=== PATIENT | female | born 1955 | race African-American/Black ===

== ENCOUNTER 2018-05-19 12:56 | Observation (INO) ==
[2018-05-19 15:14] LABS: Basophils % 0.4 % (0.0-0.8); Eosinophils # 0.1 10*3/uL (0.0-0.87); Eosinophils % 0.6 % (0.00-10.9); Hematocrit 21.5 VOL% (35.7-47.0); Hemoglobin 6.5 GM/DL (12.0-16.0); Lymphocytes # 1.6 10*3/uL (1.4-4.0); Lymphocytes % 16.6 % (21.3-54.2); Mean Corpuscular HGB Conc 30.2 GM/DL (32-36); Mean Corpuscular Hemoglobin 28 PG (27-34); Mean Corpuscular Volume 91.9 FL (87-102); Monocytes # 0.9 10*3/uL (0.11-0.8); Monocytes % 9.6 % (1.7-12.7); NRBC # 0.05 10*3/uL; Neutrophils # 7.1 10*3/uL (1.4-7.4); Neutrophils % 71.8 % (38.7-73.9); Platelet Count 453 T/CUMM (130-400); Red Blood Count 2.34 MC/CUMM (3.8-5.5); Red Cell Distribution Width 17.1 % (9.3-17.3); White Blood Count 9.8 T/CUMM (4-12)
[2018-05-19 15:44] LABS: Alanine Aminotransferase 38 U/L (13-56); Albumin 3.4 G/DL (3.4-5.0); Alkaline Phosphatase 118 U/L (45-117); Aspartate Amino Transferase 28 U/L (0-37); Bilirubin,Total < 0.39 MG/DL (0.2-1.0); Blood Urea Nitrogen 47 MG/DL (7-18); Calcium 8.9 MG/DL (8.5-10.1); Glucose 103 MG/DL (74-106); Osmolality,Calculated 284.8 MOS/KG (273-304); Potassium 4.4 MMOL/L (3.5-5.1); Sodium 137 MMOL/L (136-145); Total Protein 7.7 G/DL (6.4-8.3)
[2018-05-19] MEDS ORDERED: SODIUM CHLORIDE 0.9% 1,000 ML IV PRN ×2 (15:56→16:30)
[2018-05-19 16:18] LABS: INR 4.4
[2018-05-19 16:29] LABS: PT Patient Result 43.8 SECS
[2018-05-19] MEDS ORDERED: MORPHINE 4 MG/1 ML VIAL IV PRN (16:31)
[2018-05-19] MEDS ORDERED: ONDANSETRON 4 MG/2 ML VIAL IV PRN (16:31)
[2018-05-19] MEDS ORDERED: FUROSEMIDE 20 MG/2 ML VIAL IV ONE (16:33)
[2018-05-19] MEDS: SODIUM CHLORIDE 0.9% 1,000 ML IV SCH (17:30)
[2018-05-19] MEDS ORDERED: DOCUSATE SODIUM 100 MG CAPSULE PO PRN (17:37)
[2018-05-19 18:05] LABS: Hematocrit 24.1 VOL% (35.7-47.0); Hemoglobin 7.3 GM/DL (12.0-16.0)
[2018-05-19] MEDS ORDERED: PANTOPRAZOLE INJ 80 MG in SODIUM CHLORIDE 0.9% 100 ML IV ONE (19:00)
[2018-05-19] MEDS ORDERED: PANTOPRAZOLE INJ 200 MG in SODIUM CHLORIDE 0.9% 250 ML IV SCH (20:00)
[2018-05-19] MEDS: AMIODARONE 200 MG TABLET PO SCH (20:17)
[2018-05-19] MEDS: SACUBITRIL/VALSARTAN 49-51 MG TABLET PO SCH (20:17)
[2018-05-19] MEDS: METOPROLOL SUCCINATE XL 25 MG TABLET PO SCH (20:18)
[2018-05-19] MEDS ORDERED: PANTOPRAZOLE 40 MG VIAL IV SCH (21:00)
[2018-05-20 08:35] LABS: Basophils % 0.4 % (0.0-0.8); Eosinophils # 0.1 10*3/uL (0.0-0.87); Eosinophils % 1.2 % (0.00-10.9); Hematocrit 25.7 VOL% (35.7-47.0); Hemoglobin 8.2 GM/DL (12.0-16.0); Immature Granulocytes % 0.9 %; Immature Granulocytes Absolute 0.06 #; Lymphocytes # 1.2 10*3/uL (1.4-4.0); Mean Corpuscular HGB Conc 31.9 GM/DL (32-36); Mean Corpuscular Hemoglobin 28 PG (27-34); Mean Corpuscular Volume 88.6 FL (87-102); Mean Platelet Volume 10.9 FL (9.6-12.0); Monocytes # 0.8 10*3/uL (0.11-0.8); Monocytes % 11.6 % (1.7-12.7); NRBC # 0.02 10*3/uL; Neutrophils # 4.6 10*3/uL (1.4-7.4); Neutrophils % 67.9 % (38.7-73.9); Red Cell Distribution Width 16.3 % (9.3-17.3)
[2018-05-20 08:36] LABS: White Blood Count 6.7 T/CUMM (4-12)
[2018-05-20 08:37] LABS: Platelet Count 328 T/CUMM (130-400)
[2018-05-20 09:06] LABS: Alanine Aminotransferase 35 U/L (13-56); Alkaline Phosphatase 105 U/L (45-117); Aspartate Amino Transferase 27 U/L (0-37); Bilirubin,Total < 0.39 MG/DL (0.2-1.0); Blood Urea Nitrogen 39 MG/DL (7-18); Calcium 8.6 MG/DL (8.5-10.1); Glucose 98 MG/DL (74-106); Osmolality,Calculated 289.3 MOS/KG (273-304); Sodium 141 MMOL/L (136-145)
[2018-05-20] MEDS: METOPROLOL SUCCINATE XL 25 MG TABLET PO SCH ×2 (10:24→12:10)
[2018-05-20] MEDS: POTASSIUM CHLORIDE 10 MEQ TABLET PO SCH ×2 (10:24→12:10)
[2018-05-20] MEDS: AMIODARONE 200 MG TABLET PO SCH ×2 (10:24→12:11)
[2018-05-20] MEDS: SACUBITRIL/VALSARTAN 49-51 MG TABLET PO SCH ×2 (10:24→12:11)
[2018-05-20] MEDS: FUROSEMIDE 40 MG TABLET PO SCH ×2 (10:24→12:10)
[2018-05-20 13:17] LABS: Hematocrit 27.2 VOL% (35.7-47.0); Hemoglobin 8.7 GM/DL (12.0-16.0)
[2018-05-20] MEDS: SODIUM CHLORIDE 0.9% 1,000 ML IV SCH (14:46)
[2018-05-20 16:10] VITALS: BP 113/65
[2018-05-23] MEDS ORDERED: PANTOPRAZOLE 40 MG VIAL IV SCH (09:00)
== END 2018-05-20 15:10 | disposition left against medical advice (07) | DRG 812 ==
LOC: N.ED 12:56 → N.EDINP 16:29 → INTOOBSV 16:29 → N.2E 18:16
PROVIDERS: ADMIT Internal Medicine; ATTEND Internal Medicine

== ENCOUNTER 2020-11-19 05:46 | Inpatient (IN) ==
[2020-11-13 12:16] LABS: Basophils # 0.1 10*3/uL (0.0-0.2); Basophils % 0.6 % (0.0-0.8); Eosinophils # 0.2 10*3/uL (0.0-0.87); Eosinophils % 1.9 % (0.00-10.9); Hematocrit 34.5 VOL% (35.7-47.0); Hemoglobin 11.1 GM/DL (12.0-16.0); Immature Granulocytes Absolute 0.08 #; Lymphocytes # 1.4 10*3/uL (1.4-4.0); Lymphocytes % 16.7 % (21.3-54.2); Mean Corpuscular HGB Conc 32.2 GM/DL (32-36); Mean Corpuscular Volume 92.5 FL (87-102); Monocytes % 9.4 % (1.7-12.7); Neutrophils % 70.4 % (38.7-73.9); Platelet Count 521 T/CUMM (130-400); Red Blood Count 3.73 MC/CUMM (3.8-5.5); Red Cell Distribution Width 16.3 % (9.3-17.3); White Blood Count 8.2 T/CUMM (4-12)
[2020-11-13 12:30] LABS: Bilirubin,Urine Negative (Negative); Blood, Urine Negative (Negative); Glucose,Urine (UA) Negative (Negative); Ketones,Urine Negative (Negative); Nitrite,Urine Negative (Negative); Protein,Urine 2+ MG/DL; RBC,Urine Rare /HPF (0-4); Squamous Epithelial Cell,Urine Few /HPF (0-10); Urine Appearance Clear (Clear); Urine Color Yellow (Yellow)
[2020-11-13 12:31] LABS: INR 1.6; PT Patient Result 16.3 SECS (9.8-11.9); Partial Thromboplastin Time 41.3 SECS (23.9-33.8)
[2020-11-13 12:54] LABS: Albumin 3.4 G/DL (3.4-5.0); Bilirubin,Total 0.4 MG/DL (0.2-1.0); Osmolality,Calculated 279.4 MOS/KG (273-304); Potassium 5.2 MMOL/L (3.5-5.1); Total Protein 7.5 G/DL (6.4-8.3)
[2020-11-13 17:03] LABS: Sedimentation Rate-Westergren 90 MM/HR (0-30)
[2020-11-19] MEDS ORDERED: ceFAZolin 1,000 MG in SYRINGE 1 EACH IV ONE (06:00)
[2020-11-19] MEDS ORDERED: VANCOMYCIN INJ 1,000 MG in SODIUM CHLORIDE 0.9% 250 ML IV ONE (06:00)
[2020-11-19] MEDS ORDERED: BACITRACIN OINT 0.9 GM PACK TOP ONE (06:42)
[2020-11-19 06:46] LABS: Partial Thromboplastin Time 32.2 SECS (23.9-33.8)
[2020-11-19] MEDS ORDERED: MIDAZOLAM 2 MG/2 ML VIAL ONE (06:59)
[2020-11-19] MEDS ORDERED: propofoL 200 MG/20 ML VIAL IV ONE (06:59)
[2020-11-19] MEDS ORDERED: fentaNYL 100 MCG/2 ML VIAL ONE ×3 (06:59→08:56)
[2020-11-19] MEDS ORDERED: LIDOCAINE 2% 5 ML VIAL ONE (06:59)
[2020-11-19] MEDS ORDERED: ROPIVACAINE 0.5% 30 ML VIAL ONE (07:02)
[2020-11-19] MEDS ORDERED: DEXAMETHASONE 4 MG/1 ML VIAL ONE (07:02)
[2020-11-19] MEDS ORDERED: LACTATED RINGERS 1,000 ML IV SCH (07:30)
[2020-11-19] MEDS ORDERED: TOBRAMYCIN 1.2 GM VIAL TOP ONE ×2 (07:31→08:00)
[2020-11-19] MEDS ORDERED: VANCOMYCIN 1,000 MG VIAL ONE (07:32)
[2020-11-19] MEDS ORDERED: ONDANSETRON 4 MG/2 ML VIAL ONE (08:48)
[2020-11-19] MEDS ORDERED: PHENYLEPHRINE 1 MG/10 ML SYRINGE IV ONE (08:48)
[2020-11-19] MEDS ORDERED: HYDROCORTISONE 100 MG VIAL ONE (08:48)
[2020-11-19] MEDS ORDERED: ACETAMINOPHEN 1,000 MG/100 ML VIAL IV ONE (08:49)
[2020-11-19] MEDS ORDERED: ROCURONIUM 50 MG/5 ML VIAL IV ONE (08:49)
[2020-11-19] MEDS ORDERED: TRANEXAMIC ACID 1,000 MG/10 ML VIAL ONE (10:14)
[2020-11-19] MEDS ORDERED: SEVOFLURANE 1 UNIT/15 MINUTE INH ONE (10:18)
[2020-11-19] MEDS ORDERED: LACTATED RINGERS 1,000 ML IV ONE (10:27)
[2020-11-19] MEDS ORDERED: KETOROLAC 30 MG/1 ML VIAL ONE (10:30)
[2020-11-19] MEDS ORDERED: GLUCAGON 1 MG VIAL IM PRN (10:31)
[2020-11-19] MEDS ORDERED: DEXTROSE 50% 25 GM/50 ML VIAL IV PRN (10:31)
[2020-11-19] MEDS ORDERED: MAGNESIUM HYDROXIDE SUSP 30 ML UDCUP PO PRN (10:32)
[2020-11-19] MEDS ORDERED: diphenhydrAMINE CAP 25 MG CAPSULE PO PRN (10:32)
[2020-11-19] MEDS ORDERED: NALOXONE 0.4 MG/ML VIAL IV PRN (10:35)
[2020-11-19] MEDS ORDERED: SUGAMMADEX 200 MG/2 ML VIAL IV ONE (10:43)
[2020-11-19] MEDS ORDERED: HYDROmorphone 2 MG/1 ML VIAL ONE (10:55)
[2020-11-19] MEDS: HYDROmorphone 2 MG/1 ML VIAL IV PRN ×4 (10:55→11:15)
[2020-11-19] MEDS ORDERED: ONDANSETRON 4 MG/2 ML VIAL IV PRN (10:57)
[2020-11-19] MEDS ORDERED: HYDROmorphone PCA 30 MG/30 ML SYRINGE IV SCH (11:00)
[2020-11-19] MEDS: ONDANSETRON 4 MG/2 ML VIAL IV PRN (15:52)
[2020-11-19] MEDS: INSULIN LISPRO 100 UNIT/ML SUBCUT SCH ×4 (16:05→21:16)
[2020-11-19] MEDS: LACTATED RINGERS 1,000 ML IV SCH ×2 (16:46→20:19)
[2020-11-19] MEDS: ceFAZolin 1,000 MG in SYRINGE 1 EACH IV SCH (21:07)
[2020-11-19] MEDS: ATORVASTATIN 10 MG TABLET PO SCH (21:14)
[2020-11-19] MEDS: SACUBITRIL/VALSARTAN 49-51 MG TABLET PO SCH (21:14)
[2020-11-19] MEDS: METOPROLOL SUCCINATE XL 25 MG TABLET PO SCH (21:15)
[2020-11-19] MEDS: AMIODARONE 200 MG TABLET PO SCH (21:15)
[2020-11-19] MEDS: DOCUSATE SODIUM 100 MG CAPSULE PO SCH (21:15)
[2020-11-20] MEDS: ceFAZolin 1,000 MG in SYRINGE 1 EACH IV SCH (03:52)
[2020-11-20] MEDS ORDERED: ceFAZolin 1,000 MG in SYRINGE 1 EACH IV SCH (04:00)
[2020-11-20] MEDS: LACTATED RINGERS 1,000 ML IV SCH (04:25)
[2020-11-20 05:12] LABS: Basophils % 0.1 % (0.0-0.8); Eosinophils % 0.1 % (0.00-10.9); Hematocrit 27.4 VOL% (35.7-47.0); Hemoglobin 8.6 GM/DL (12.0-16.0); Immature Granulocytes % 0.6 %; Immature Granulocytes Absolute 0.09 #; Lymphocytes # 1.4 10*3/uL (1.4-4.0); Lymphocytes % 9.3 % (21.3-54.2); Mean Corpuscular HGB Conc 31.4 GM/DL (32-36); Mean Corpuscular Volume 94.5 FL (87-102); Mean Platelet Volume 11.4 FL (9.6-12.0); Monocytes % 10.7 % (1.7-12.7); Neutrophils % 79.2 % (38.7-73.9); Platelet Count 288 T/CUMM (130-400); Red Cell Distribution Width 16.8 % (9.3-17.3); White Blood Count 14.7 T/CUMM (4-12)
[2020-11-20 05:38] LABS: Calcium 8.7 MG/DL (8.5-10.1); Osmolality,Calculated 281.4 MOS/KG (273-304); Potassium 4.5 MMOL/L (3.5-5.1)
[2020-11-20 05:41] LABS: Risk Ratio 2.23; VLDL CHOLESTEROL 11.4 MG/DL
[2020-11-20] MEDS: VANCOMYCIN INJ 1,250 MG in SODIUM CHLORIDE 0.9% 250 ML IV SCH (06:29)
[2020-11-20] MEDS ORDERED: MORPHINE 4 MG/1 ML VIAL IV PRN (07:12)
[2020-11-20] MEDS: INSULIN LISPRO 100 UNIT/ML SUBCUT SCH ×4 (08:02→21:26)
[2020-11-20] MEDS ORDERED: AMIODARONE 200 MG TABLET PO SCH (09:01)
[2020-11-20] MEDS: METOPROLOL SUCCINATE XL 25 MG TABLET PO SCH ×2 (09:45→21:26)
[2020-11-20] MEDS: PANTOPRAZOLE 40 MG TABLET PO SCH (09:45)
[2020-11-20] MEDS: FAMOTIDINE 20 MG TABLET PO SCH (09:46)
[2020-11-20] MEDS: SACUBITRIL/VALSARTAN 49-51 MG TABLET PO SCH ×2 (09:46→21:25)
[2020-11-20] MEDS: ASPIRIN EC 81 MG TABLET PO SCH (09:46)
[2020-11-20] MEDS: SPIRONOLACTONE 25 MG TABLET PO SCH (09:46)
[2020-11-20] MEDS: AMIODARONE 200 MG TABLET PO SCH (09:46)
[2020-11-20] MEDS: POTASSIUM CHLORIDE 10 MEQ TABLET PO SCH (09:46)
[2020-11-20] MEDS: DOCUSATE SODIUM 100 MG CAPSULE PO SCH ×2 (09:46→21:25)
[2020-11-20] MEDS: FUROSEMIDE 40 MG TABLET PO SCH (09:47)
[2020-11-20] MEDS: FLUoxetine 20 MG CAPSULE PO SCH (09:47)
[2020-11-20 09:57] LABS: PT Patient Result 10.4 SECS (9.8-11.9)
[2020-11-20] MEDS: ONDANSETRON 4 MG/2 ML VIAL IV PRN (11:48)
[2020-11-20] MEDS ORDERED: WARFARIN 3 MG TABLET PO SCH (21:00)
[2020-11-20] MEDS: ATORVASTATIN 10 MG TABLET PO SCH (21:26)
[2020-11-21 05:31] LABS: Basophils % 0.2 % (0.0-0.8); Eosinophils # 0.1 10*3/uL (0.0-0.87); Eosinophils % 0.7 % (0.00-10.9); Hematocrit 25.3 VOL% (35.7-47.0); Hemoglobin 7.9 GM/DL (12.0-16.0); Immature Granulocytes % 0.6 %; Immature Granulocytes Absolute 0.07 #; Lymphocytes # 1.3 10*3/uL (1.4-4.0); Lymphocytes % 11.2 % (21.3-54.2); Mean Corpuscular HGB Conc 31.2 GM/DL (32-36); Mean Corpuscular Volume 95.5 FL (87-102); Mean Platelet Volume 12.3 FL (9.6-12.0); Monocytes % 13.8 % (1.7-12.7); Neutrophils % 73.5 % (38.7-73.9); Platelet Count 245 T/CUMM (130-400); Red Blood Count 2.65 MC/CUMM (3.8-5.5); Red Cell Distribution Width 17.1 % (9.3-17.3); White Blood Count 11.8 T/CUMM (4-12)
[2020-11-21 05:42] LABS: INR 1.3; PT Patient Result 13.9 SECS (9.8-11.9)
[2020-11-21] MEDS: VANCOMYCIN INJ 1,250 MG in SODIUM CHLORIDE 0.9% 250 ML IV SCH (05:43)
[2020-11-21] MEDS: INSULIN LISPRO 100 UNIT/ML SUBCUT SCH ×3 (07:44→16:42)
[2020-11-21] MEDS: FAMOTIDINE 20 MG TABLET PO SCH (10:49)
[2020-11-21] MEDS: PANTOPRAZOLE 40 MG TABLET PO SCH (10:49)
[2020-11-21] MEDS: SACUBITRIL/VALSARTAN 49-51 MG TABLET PO SCH (10:49)
[2020-11-21] MEDS: METOPROLOL SUCCINATE XL 25 MG TABLET PO SCH (10:49)
[2020-11-21] MEDS: DOCUSATE SODIUM 100 MG CAPSULE PO SCH (10:49)
[2020-11-21] MEDS: ASPIRIN EC 81 MG TABLET PO SCH (10:49)
[2020-11-21] MEDS: SPIRONOLACTONE 25 MG TABLET PO SCH (10:49)
[2020-11-21] MEDS: POTASSIUM CHLORIDE 10 MEQ TABLET PO SCH (10:50)
[2020-11-21] MEDS: FLUoxetine 20 MG CAPSULE PO SCH (10:50)
[2020-11-21] MEDS: FUROSEMIDE 40 MG TABLET PO SCH (11:06)
[2020-11-21 11:19] VITALS: BP 93/70
== END 2020-11-21 17:50 | disposition home health service (06) | DRG 467 ==
LOC: N.OR 05:46 → N.SDSINP 05:47 → N.3E 15:36
PROVIDERS: ADMIT Orthopaedic Surgery; ATTEND Orthopaedic Surgery

== ENCOUNTER 2020-12-04 11:49 | Observation (INO) ==
[2020-12-04] MEDS ORDERED: diphenhydrAMINE 50 MG/1 ML VIAL IV STA (12:31)
[2020-12-04] MEDS ORDERED: FAMOTIDINE 20 MG/2 ML VIAL IV STA (12:31)
[2020-12-04] MEDS ORDERED: methylPREDNISolone SOD SUC 125 MG/2 ML VIAL IV STA (12:31)
[2020-12-04] MEDS ORDERED: LIDOCAINE 1%/EPI INJ 20 ML VIAL ONE (12:43)
[2020-12-04 12:49] LABS: Basophils # 0.1 10*3/uL (0.0-0.2); Basophils % 0.6 % (0.0-0.8); Eosinophils % 9.9 % (0.00-10.9); Hematocrit 33.9 VOL% (35.7-47.0); Hemoglobin 10.6 GM/DL (12.0-16.0); Immature Granulocytes % 0.8 %; Immature Granulocytes Absolute 0.08 #; Lymphocytes # 1.5 10*3/uL (1.4-4.0); Mean Corpuscular HGB Conc 31.3 GM/DL (32-36); Mean Corpuscular Volume 97.7 FL (87-102); Mean Platelet Volume 11.1 FL (9.6-12.0); Monocytes % 8.9 % (1.7-12.7); Neutrophils % 64.8 % (38.7-73.9); Platelet Count 566 T/CUMM (130-400); Red Blood Count 3.47 MC/CUMM (3.8-5.5); Red Cell Distribution Width 17.5 % (9.3-17.3)
[2020-12-04 12:57] LABS: INR 1.3; PT Patient Result 13.9 SECS (9.8-11.9)
[2020-12-04 13:04] LABS: Osmolality,Calculated 278.5 MOS/KG (273-304); Potassium 4.1 MMOL/L (3.5-5.1)
[2020-12-04] MEDS ORDERED: ONDANSETRON 4 MG/2 ML VIAL IV PRN (16:32)
[2020-12-04 18:38] VITALS: BP 127/67
[2020-12-04] MEDS: FAMOTIDINE 20 MG/2 ML VIAL IV SCH (19:36)
[2020-12-04] MEDS: DEXAMETHASONE 4 MG/1 ML VIAL IV SCH (19:40)
[2020-12-04] MEDS: LACTATED RINGERS 1,000 ML IV SCH (19:44)
[2020-12-04] MEDS ORDERED: ENOXAPARIN 30 MG/0.3 ML SYRINGE SUBCUT SCH (21:00)
[2020-12-05] MEDS: DEXAMETHASONE 4 MG/1 ML VIAL IV SCH (03:07)
[2020-12-05 04:32] LABS: Basophils % 0.1 % (0.0-0.8); Immature Granulocytes % 0.8 %; Immature Granulocytes Absolute 0.09 #; Lymphocytes # 0.8 10*3/uL (1.4-4.0); Lymphocytes % 6.9 % (21.3-54.2); Mean Corpuscular HGB Conc 32.1 GM/DL (32-36); Mean Corpuscular Volume 95.9 FL (87-102); Mean Platelet Volume 11.2 FL (9.6-12.0); Monocytes % 1.5 % (1.7-12.7); Neutrophils % 90.7 % (38.7-73.9); Red Blood Count 2.92 MC/CUMM (3.8-5.5); Red Cell Distribution Width 17.6 % (9.3-17.3); White Blood Count 11.1 T/CUMM (4-12)
[2020-12-05 04:37] LABS: Platelet Count 379 T/CUMM (130-400)
[2020-12-05 04:43] LABS: Bilirubin,Total 0.9 MG/DL (0.2-1.0); Calcium 9.1 MG/DL (8.5-10.1); Osmolality,Calculated 286.3 MOS/KG (273-304); Potassium 4.3 MMOL/L (3.5-5.1); Total Protein 7.4 G/DL (6.4-8.3)
[2020-12-05] MEDS: FAMOTIDINE 20 MG/2 ML VIAL IV SCH (05:55)
[2020-12-05] MEDS: LACTATED RINGERS 1,000 ML IV SCH (05:55)
[2020-12-05] MEDS ORDERED: SUCCINYLCHOLINE 200 MG/10 ML VIAL ONE (06:45)
[2020-12-05] MEDS ORDERED: propofoL 200 MG/20 ML VIAL IV ONE (06:45)
[2020-12-05] MEDS ORDERED: LIDOCAINE 2% 5 ML VIAL ONE (06:45)
[2020-12-05 08:29] LABS: Hypochromasia 1+; Lymphocytes 10 % (20-55); Microcytosis 1+; Segmented Neutrophils 88 % (50-85); Total Cells Counted 100
[2020-12-05 08:30] LABS: Ovalocytes Slight; Platelet Estimate Normal
[2020-12-05] MEDS ORDERED: CETIRIZINE 10 MG TABLET PO SCH (09:00)
[2020-12-06] MEDS ORDERED: FAMOTIDINE 20 MG/2 ML VIAL IV SCH (08:30)
== END 2020-12-05 09:20 | disposition home or self-care (01) ==
LOC: N.ED 11:49 → N.EDINP 16:32 → INTOOBSV 16:32 → N.CC 17:03
PROVIDERS: ADMIT Family Medicine; ATTEND Family Medicine

== ENCOUNTER 2021-02-11 05:38 | Inpatient (IN) ==
[2021-02-05 13:01] LABS: Bilirubin,Urine Negative (Negative); Blood, Urine Negative (Negative); Glucose,Urine (UA) Negative (Negative); Ketones,Urine Negative (Negative); Mucus,Urine Occasional /LPF (Occasional); Nitrite,Urine Negative (Negative); Protein,Urine Negative; RBC,Urine 1 /HPF (0-4); Squamous Epithelial Cell,Urine Occasional /HPF (0-10); Urine Appearance CLEAR (Clear); Urine Color Yellow (Yellow); Urine Specific Gravity 1.019 (1.001-1.035); Urine Urobilinogen < 2.0 EU/DL (0.2-1.0); WBC,Urine 1 /HPF (0-6)
[2021-02-05 13:02] LABS: Basophils % 0.5 % (0.0-0.8); Eosinophils # 0.1 10*3/uL (0.0-0.87); Eosinophils % 1.5 % (0.00-10.9); Hematocrit 37.7 VOL% (35.7-47.0); Hemoglobin 11.9 GM/DL (12.0-16.0); Immature Granulocytes % 0.5 %; Immature Granulocytes Absolute 0.04 #; Mean Corpuscular HGB Conc 31.6 GM/DL (32-36); Mean Corpuscular Volume 96.9 FL (87-102); Mean Platelet Volume 12.2 FL (9.6-12.0); Monocytes % 10.6 % (1.7-12.7); Neutrophils % 61.9 % (38.7-73.9); Platelet Count 372 T/CUMM (130-400); Red Blood Count 3.89 MC/CUMM (3.8-5.5); White Blood Count 8.1 T/CUMM (4-12)
[2021-02-05 13:18] LABS: INR 2.2; PT Patient Result 23.4 SECS (9.8-11.9); Partial Thromboplastin Time 38.7 SECS (23.9-33.8)
[2021-02-05 13:27] LABS: Albumin 3.9 G/DL (3.4-5.0); Bilirubin,Total 0.5 MG/DL (0.2-1.0); Calcium 9.3 MG/DL (8.5-10.1); Osmolality,Calculated 279.4 MOS/KG (273-304); Potassium 4.5 MMOL/L (3.5-5.1); Total Protein 7.7 G/DL (6.4-8.2)
[~2021-02-11 05:38] MED LIST: ACETAMINOPHEN 500 MG TABLET PO ONE; FAMOTIDINE 20 MG TABLET PO ONE
[2021-02-11] MEDS ORDERED: VANCOMYCIN INJ 1,000 MG in SODIUM CHLORIDE 0.9% 250 ML IV ONE ×2 (06:00→21:20)
[2021-02-11] MEDS ORDERED: GABAPENTIN 400 MG CAPSULE PO ONE (06:00)
[2021-02-11] MEDS ORDERED: DIAZEPAM 5 MG TABLET PO ONE (06:00)
[2021-02-11] MEDS ORDERED: ACETAMINOPHEN 500 MG TABLET ONE (06:52)
[2021-02-11] MEDS ORDERED: FAMOTIDINE 20 MG TABLET ONE (06:52)
[2021-02-11 07:10] LABS: INR 1.1; PT Patient Result 12.4 SECS (10.5-12.0)
[2021-02-11] MEDS ORDERED: LACTATED RINGERS 1,000 ML IV SCH (07:30)
[2021-02-11] MEDS ORDERED: propofoL 200 MG/20 ML VIAL IV ONE (09:39)
[2021-02-11] MEDS ORDERED: ROCURONIUM 50 MG/5 ML VIAL IV ONE (09:39)
[2021-02-11] MEDS ORDERED: LIDOCAINE 2% 5 ML VIAL ONE (09:39)
[2021-02-11] MEDS ORDERED: fentaNYL 100 MCG/2 ML VIAL ONE (09:39)
[2021-02-11] MEDS ORDERED: MIDAZOLAM 2 MG/2 ML VIAL ONE (09:58)
[2021-02-11] MEDS ORDERED: KETAMINE 500 MG/10 ML VIAL ONE (09:58)
[2021-02-11] MEDS ORDERED: DEXMEDETOMIDINE 200 MCG/2 ML VIAL ONE (09:58)
[2021-02-11] MEDS ORDERED: BACITRACIN OINT 0.9 GM PACK TOP ONE (10:36)
[2021-02-11] MEDS ORDERED: PHENYLEPHRINE 1 MG/10 ML SYRINGE IV ONE (11:28)
[2021-02-11] MEDS ORDERED: ONDANSETRON 4 MG/2 ML VIAL ONE (11:28)
[2021-02-11] MEDS ORDERED: DESFLURANE 1 UNIT/15 MINUTE INH ONE (12:41)
[2021-02-11] MEDS ORDERED: LACTATED RINGERS 1,000 ML IV ONE ×2 (12:42→15:36)
[2021-02-11] MEDS ORDERED: KETOROLAC 30 MG/1 ML VIAL ONE (12:57)
[2021-02-11] MEDS ORDERED: HYDROmorphone 2 MG/1 ML VIAL ONE (13:01)
[2021-02-11] MEDS ORDERED: GLYCOPYRROLATE 0.4 MG/2 ML VIAL ONE (13:15)
[2021-02-11] MEDS ORDERED: ONDANSETRON ODT 4 MG TABLET PO PRN (13:16)
[2021-02-11] MEDS ORDERED: diphenhydrAMINE CAP 25 MG CAPSULE PO PRN (13:19)
[2021-02-11] MEDS ORDERED: DEXTROSE 50% 25 GM/50 ML VIAL IV PRN (13:19)
[2021-02-11] MEDS ORDERED: ONDANSETRON 4 MG/2 ML VIAL IV PRN (13:19)
[2021-02-11] MEDS ORDERED: MORPHINE 4 MG/1 ML VIAL IV PRN ×2 (13:19)
[2021-02-11] MEDS ORDERED: GLUCAGON 1 MG VIAL IM PRN (13:19)
[2021-02-11] MEDS ORDERED: ZALEPLON 5 MG CAPSULE PO PRN (13:19)
[2021-02-11] MEDS ORDERED: MAGNESIUM HYDROXIDE SUSP 30 ML UDCUP PO PRN (13:19)
[2021-02-11] MEDS ORDERED: NALOXONE 0.4 MG/ML VIAL ONE (13:29)
[2021-02-11] MEDS ORDERED: ALBUMIN 5% 12.5 GM/250 ML VIAL IV ONE (13:57)
[2021-02-11] MEDS: LACTATED RINGERS 1,000 ML IV SCH ×2 (15:30→23:25)
[2021-02-11] MEDS: KETOROLAC 15 MG/1 ML VIAL IV SCH ×2 (17:02→21:17)
[2021-02-11] MEDS: hydrALAZINE 25 MG TABLET PO SCH ×2 (17:03→21:30)
[2021-02-11] MEDS: INSULIN LISPRO 100 UNIT/ML SUBCUT SCH ×2 (17:03→20:22)
[2021-02-11] MEDS: WARFARIN 3 MG TABLET PO SCH (21:19)
[2021-02-11] MEDS: FAMOTIDINE 20 MG TABLET PO SCH (21:19)
[2021-02-11] MEDS: DOCUSATE SODIUM 100 MG CAPSULE PO SCH (21:19)
[2021-02-11] MEDS: METOPROLOL SUCCINATE XL 25 MG TABLET PO SCH (21:19)
[2021-02-11] MEDS: ceFAZolin 2,000 MG in PREMIX 1 EACH IV SCH (23:32)
[2021-02-12] MEDS: KETOROLAC 15 MG/1 ML VIAL IV SCH ×4 (01:07→17:56)
[2021-02-12] MEDS: ceFAZolin 2,000 MG in PREMIX 1 EACH IV SCH ×3 (06:22→23:52)
[2021-02-12] MEDS: INSULIN LISPRO 100 UNIT/ML SUBCUT SCH ×4 (07:41→20:15)
[2021-02-12 08:50] LABS: Basophils % 0.2 % (0.0-0.8); Eosinophils # 0.1 10*3/uL (0.0-0.87); Eosinophils % 0.7 % (0.00-10.9); Hematocrit 24.6 VOL% (35.7-47.0); Hemoglobin 7.7 GM/DL (12.0-16.0); Immature Granulocytes % 0.6 %; Immature Granulocytes Absolute 0.07 #; Lymphocytes # 1.2 10*3/uL (1.4-4.0); Lymphocytes % 10.5 % (21.3-54.2); Mean Corpuscular HGB Conc 31.3 GM/DL (32-36); Mean Corpuscular Volume 99.2 FL (87-102); Mean Platelet Volume 12.8 FL (9.6-12.0); Monocytes % 9.7 % (1.7-12.7); Neutrophils % 78.3 % (38.7-73.9); Platelet Count 183 T/CUMM (130-400); Red Blood Count 2.48 MC/CUMM (3.8-5.5); Red Cell Distribution Width 13.8 % (9.3-17.3); White Blood Count 11.7 T/CUMM (4-12)
[2021-02-12 08:59] LABS: Calcium 8.6 MG/DL (8.5-10.1); INR 1.1; Osmolality,Calculated 279.5 MOS/KG (273-304); PT Patient Result 12.4 SECS (10.5-12.0); Potassium 4.5 MMOL/L (3.5-5.1)
[2021-02-12] MEDS: hydrALAZINE 25 MG TABLET PO SCH (09:00)
[2021-02-12 09:31] LABS: Hypochromasia 1+; Microcytosis 1+
[2021-02-12] MEDS: LACTATED RINGERS 1,000 ML IV SCH ×2 (10:20→20:12)
[2021-02-12] MEDS: POTASSIUM CHLORIDE 10 MEQ TABLET PO SCH (11:07)
[2021-02-12] MEDS: DOCUSATE SODIUM 100 MG CAPSULE PO SCH ×2 (11:07→20:15)
[2021-02-12] MEDS: FAMOTIDINE 20 MG TABLET PO SCH ×2 (11:08→20:15)
[2021-02-12] MEDS: FUROSEMIDE 40 MG TABLET PO SCH (11:20)
[2021-02-12] MEDS: METOPROLOL SUCCINATE XL 25 MG TABLET PO SCH ×2 (11:20→20:15)
[2021-02-12] MEDS: WARFARIN 3 MG TABLET PO SCH (17:57)
[2021-02-13] MEDS: LACTATED RINGERS 1,000 ML IV SCH (05:30)
[2021-02-13 05:32] LABS: INR 1.2; PT Patient Result 13.2 SECS (10.5-12.0)
[2021-02-13 05:35] LABS: Basophils % 0.1 % (0.0-0.8); Eosinophils # 0.2 10*3/uL (0.0-0.87); Eosinophils % 2.3 % (0.00-10.9); Hematocrit 19.3 VOL% (35.7-47.0); Immature Granulocytes % 1.4 %; Immature Granulocytes Absolute 0.12 #; Lymphocytes # 1.2 10*3/uL (1.4-4.0); Lymphocytes % 14.1 % (21.3-54.2); Mean Corpuscular HGB Conc 31.1 GM/DL (32-36); Mean Platelet Volume 12.1 FL (9.6-12.0); Monocytes % 13.8 % (1.7-12.7); Neutrophils % 68.3 % (38.7-73.9); Platelet Count 170 T/CUMM (130-400); Red Blood Count 1.95 MC/CUMM (3.8-5.5); Red Cell Distribution Width 13.9 % (9.3-17.3); White Blood Count 8.3 T/CUMM (4-12)
[2021-02-13 06:15] LABS: Eosinophils 1 % (0-10); Hypochromasia 2+; Lymphocytes 16 % (20-55); Microcytosis 1+; Platelet Estimate Adequate; Segmented Neutrophils 72 % (50-85); Total Cells Counted 100
[2021-02-13] MEDS ORDERED: SODIUM CHLORIDE 0.9% 1,000 ML IV PRN (06:26)
[2021-02-13] MEDS ORDERED: FUROSEMIDE 40 MG/4 ML VIAL IV PRN (06:26)
[2021-02-13] MEDS: ceFAZolin 2,000 MG in PREMIX 1 EACH IV SCH ×2 (06:37→21:28)
[2021-02-13] MEDS: INSULIN LISPRO 100 UNIT/ML SUBCUT SCH ×4 (07:00→21:27)
[2021-02-13] MEDS: DOCUSATE SODIUM 100 MG CAPSULE PO SCH ×2 (09:54→21:26)
[2021-02-13] MEDS: POTASSIUM CHLORIDE 10 MEQ TABLET PO SCH (09:54)
[2021-02-13] MEDS: METOPROLOL SUCCINATE XL 25 MG TABLET PO SCH ×2 (09:55→21:26)
[2021-02-13] MEDS: FAMOTIDINE 20 MG TABLET PO SCH ×2 (09:55→21:28)
[2021-02-13] MEDS: FUROSEMIDE 40 MG TABLET PO SCH (10:19)
[2021-02-14] MEDS: ceFAZolin 2,000 MG in PREMIX 1 EACH IV SCH ×2 (05:21→12:42)
[2021-02-14 06:45] LABS: Basophils % 0.3 % (0.0-0.8); Eosinophils # 0.3 10*3/uL (0.0-0.87); Eosinophils % 3.3 % (0.00-10.9); Hematocrit 27.4 VOL% (35.7-47.0); Hemoglobin 8.9 GM/DL (12.0-16.0); Immature Granulocytes % 0.6 %; Immature Granulocytes Absolute 0.05 #; Lymphocytes % 11.2 % (21.3-54.2); Mean Corpuscular HGB Conc 32.5 GM/DL (32-36); Mean Corpuscular Volume 95.1 FL (87-102); Mean Platelet Volume 11.9 FL (9.6-12.0); Monocytes % 11.1 % (1.7-12.7); Neutrophils % 73.5 % (38.7-73.9); Platelet Count 165 T/CUMM (130-400); Red Blood Count 2.88 MC/CUMM (3.8-5.5); Red Cell Distribution Width 13.6 % (9.3-17.3); White Blood Count 8.7 T/CUMM (4-12)
[2021-02-14 07:05] LABS: INR 1.1; PT Patient Result 12.2 SECS (10.5-12.0)
[2021-02-14] MEDS: INSULIN LISPRO 100 UNIT/ML SUBCUT SCH ×3 (07:29→15:52)
[2021-02-14] MEDS: DOCUSATE SODIUM 100 MG CAPSULE PO SCH (09:28)
[2021-02-14] MEDS: METOPROLOL SUCCINATE XL 25 MG TABLET PO SCH (09:29)
[2021-02-14] MEDS: FAMOTIDINE 20 MG TABLET PO SCH (09:29)
[2021-02-14] MEDS: POTASSIUM CHLORIDE 10 MEQ TABLET PO SCH (09:29)
[2021-02-14] MEDS: FUROSEMIDE 40 MG TABLET PO SCH (09:31)
[2021-02-14 15:12] VITALS: BP 116/70
[2021-02-14] MEDS ORDERED: RIVAROXABAN 10 MG TABLET PO SCH (17:00)
== END 2021-02-14 16:35 | disposition home health service (06) | DRG 467 ==
LOC: N.OR 05:38 → N.SDSINP 05:40 → N.3E 16:33
PROVIDERS: ADMIT Orthopaedic Surgery; ATTEND Orthopaedic Surgery

== ENCOUNTER 2021-09-16 07:47 | Observation (INO) ==
[2021-09-09 11:05] LABS: Basophils % 0.6 % (0.0-0.8); Eosinophils # 0.2 10*3/uL (0.0-0.87); Eosinophils % 2.8 % (0.00-10.9); Hematocrit 38.2 VOL% (35.7-47.0); Hemoglobin 12.2 GM/DL (12.0-16.0); Immature Granulocytes % 0.3 %; Immature Granulocytes Absolute 0.02 #; Lymphocytes # 1.8 10*3/uL (1.4-4.0); Lymphocytes % 26.3 % (21.3-54.2); Mean Corpuscular HGB Conc 31.9 GM/DL (32-36); Mean Corpuscular Volume 92.5 FL (87-102); Mean Platelet Volume 12.5 FL (9.6-12.0); Monocytes % 9.1 % (1.7-12.7); Neutrophils % 60.9 % (38.7-73.9); Platelet Count 312 T/CUMM (130-400); Red Blood Count 4.13 MC/CUMM (3.8-5.5); Red Cell Distribution Width 13.8 % (9.3-17.3); White Blood Count 6.7 T/CUMM (4-12)
[2021-09-09 11:11] LABS: Bilirubin,Urine Negative (Negative); Blood, Urine Negative (Negative); Glucose,Urine (UA) Negative (Negative); Hyaline Casts,Urine 5 /LPF (0-3); Ketones,Urine Negative (Negative); Mucus,Urine Occasional /LPF (Occasional); Nitrite,Urine Negative (Negative); Protein,Urine 30 MG/DL; RBC,Urine 2 /HPF (0-4); Squamous Epithelial Cell,Urine Occasional /HPF (0-10); Urine Appearance CLEAR (Clear); Urine Color Amber (Yellow); Urine Specific Gravity 1.024 (1.001-1.035)
[2021-09-09 11:17] LABS: INR 1.2; PT Patient Result 13.8 SECS (10.5-12.0); Partial Thromboplastin Time 34.7 SECS (23.8-32.1)
[2021-09-09 11:29] LABS: Bilirubin,Total 1.2 MG/DL (0.20-1.00); Osmolality,Calculated 275.8 MOS/KG (273-304); Potassium 4.8 MMOL/L (3.5-5.1)
[~2021-09-16 07:47] MED LIST changes: -ACETAMINOPHEN 500 MG TABLET PO ONE; -FAMOTIDINE 20 MG TABLET PO ONE; +VANCOMYCIN INJ 1,000 MG in SODIUM CHLORIDE 0.9% 250 ML IV ONE
[2021-09-16] MEDS ORDERED: fentaNYL 100 MCG/2 ML VIAL ONE (08:19)
[2021-09-16] MEDS ORDERED: LIDOCAINE 2% 5 ML VIAL ONE ×2 (08:19→10:35)
[2021-09-16] MEDS ORDERED: MIDAZOLAM 2 MG/2 ML VIAL ONE ×2 (08:19→10:36)
[2021-09-16] MEDS ORDERED: BUPIVACAINE SPINAL 0.75% 2 ML AMP SPINAL ONE (08:19)
[2021-09-16] MEDS ORDERED: propofoL 200 MG/20 ML VIAL IV ONE ×2 (08:19→10:35)
[2021-09-16] MEDS ORDERED: DIAZEPAM 5 MG TABLET ONE (08:34)
[2021-09-16] MEDS ORDERED: DIAZEPAM 5 MG TABLET PO STA (08:36)
[2021-09-16] MEDS ORDERED: FAMOTIDINE 20 MG TABLET PO ONE (08:43)
[2021-09-16] MEDS ORDERED: LACTATED RINGERS 1,000 ML IV SCH (09:00)
[2021-09-16] MEDS ORDERED: BACITRACIN OINT 0.9 GM PACK TOP ONE (09:50)
[2021-09-16] MEDS ORDERED: DILTIAZEM 50 MG/10 ML VIAL IV ONE (09:54)
[2021-09-16] MEDS ORDERED: PHENYLEPHRINE 1 MG/10 ML SYRINGE IV ONE (10:35)
[2021-09-16] MEDS ORDERED: ETOMIDATE 40 MG/20 ML VIAL IV ONE (10:35)
[2021-09-16] MEDS ORDERED: ROCURONIUM 50 MG/5 ML VIAL IV ONE (10:35)
[2021-09-16] MEDS ORDERED: PHENYLEPHRINE 10 MG/1 ML VIAL IV ONE (10:36)
[2021-09-16] MEDS ORDERED: fentaNYL 250 MCG/5 ML VIAL ONE (10:36)
[2021-09-16] MEDS ORDERED: TRANEXAMIC ACID 1,000 MG/10 ML VIAL ONE (12:03)
[2021-09-16] MEDS ORDERED: SUGAMMADEX 200 MG/2 ML VIAL IV ONE (12:07)
[2021-09-16] MEDS ORDERED: ACETAMINOPHEN INJ 1,000 MG/100 ML VIAL IV ONE (12:12)
[2021-09-16] MEDS ORDERED: MAGNESIUM HYDROXIDE SUSP 30 ML UDCUP PO PRN (12:23)
[2021-09-16] MEDS ORDERED: GLUCAGON 1 MG VIAL IM PRN (12:23)
[2021-09-16] MEDS ORDERED: ONDANSETRON 4 MG/2 ML VIAL IV PRN ×2 (12:23→12:55)
[2021-09-16] MEDS ORDERED: diphenhydrAMINE CAP 25 MG CAPSULE PO PRN (12:23)
[2021-09-16] MEDS ORDERED: ZALEPLON 5 MG CAPSULE PO PRN (12:23)
[2021-09-16] MEDS ORDERED: MORPHINE 2 MG/1 ML SYRINGE IV PRN ×2 (12:23)
[2021-09-16] MEDS ORDERED: flumazeniL 0.5 MG/5 ML VIAL IV ONE (12:35)
[2021-09-16] MEDS: LACTATED RINGERS 1,000 ML IV SCH (12:42)
[2021-09-16] MEDS ORDERED: MEPERIDINE 25 MG/1 ML VIAL ONE (12:51)
[2021-09-16] MEDS ORDERED: diphenhydrAMINE 50 MG/1 ML VIAL IV PRN (12:55)
[2021-09-16] MEDS ORDERED: PROMETHAZINE INJ 25 MG in SODIUM CHLORIDE 0.9% 50 ML IV PRN (12:55)
[2021-09-16] MEDS: MEPERIDINE 25 MG/1 ML VIAL IV PRN ×2 (13:00→13:15)
[2021-09-16] MEDS ORDERED: KETOROLAC 30 MG/1 ML VIAL ONE (13:18)
[2021-09-16] MEDS ORDERED: DILTIAZEM INJ 100 MG in SODIUM CHLORIDE 0.9% 100 ML IV SCH (13:30)
[2021-09-16] MEDS: KETOROLAC 15 MG/1 ML VIAL IV SCH ×2 (13:45→18:08)
[2021-09-16] MEDS: HYDROmorphone 2 MG/1 ML VIAL IV PRN ×4 (14:30→14:45)
[2021-09-16] MEDS ORDERED: DEXTROSE 50% 25 GM/50 ML SYRINGE IV PRN (15:27)
[2021-09-16] MEDS: INSULIN LISPRO 100 UNIT/ML SUBCUT SCH ×2 (16:56→21:52)
[2021-09-16] MEDS: DILTIAZEM 30 MG TABLET PO SCH (18:08)
[2021-09-16] MEDS ORDERED: SIMVASTATIN 10 MG TABLET PO SCH (21:00)
[2021-09-16] MEDS: ASCORBIC ACID 500 MG TABLET PO SCH (21:35)
[2021-09-16] MEDS: carvediloL 12.5 MG TABLET PO SCH (21:36)
[2021-09-16] MEDS: DOCUSATE SODIUM 100 MG CAPSULE PO SCH (21:36)
[2021-09-16] MEDS: FAMOTIDINE 20 MG TABLET PO SCH (21:36)
[2021-09-17] MEDS: DILTIAZEM 30 MG TABLET PO SCH ×2 (00:18→05:37)
[2021-09-17] MEDS: KETOROLAC 15 MG/1 ML VIAL IV SCH (00:21)
[2021-09-17] MEDS: LACTATED RINGERS 1,000 ML IV SCH (00:22)
[2021-09-17 06:10] LABS: Basophils % 0.2 % (0.0-0.8); Eosinophils # 0.2 10*3/uL (0.0-0.87); Eosinophils % 3.3 % (0.00-10.9); Hematocrit 29.2 VOL% (35.7-47.0); Hemoglobin 9.2 GM/DL (12.0-16.0); Immature Granulocytes % 0.5 %; Immature Granulocytes Absolute 0.03 #; Lymphocytes # 0.9 10*3/uL (1.4-4.0); Lymphocytes % 13.5 % (21.3-54.2); Mean Corpuscular HGB Conc 31.5 GM/DL (32-36); Mean Corpuscular Volume 95.1 FL (87-102); Mean Platelet Volume 11.9 FL (9.6-12.0); Monocytes % 11.3 % (1.7-12.7); Neutrophils % 71.2 % (38.7-73.9); Platelet Count 196 T/CUMM (130-400); Red Blood Count 3.07 MC/CUMM (3.8-5.5); Red Cell Distribution Width 14.1 % (9.3-17.3); White Blood Count 6.4 T/CUMM (4-12)
[2021-09-17 06:25] LABS: Calcium 8.6 MG/DL (8.5-10.1); Osmolality,Calculated 275.8 MOS/KG (273-304); Potassium 4.7 MMOL/L (3.5-5.1)
[2021-09-17 06:29] LABS: Calcium 8.5 MG/DL (8.5-10.1); Osmolality,Calculated 280.4 MOS/KG (273-304); Potassium 4.7 MMOL/L (3.5-5.1)
[2021-09-17] MEDS: FUROSEMIDE 40 MG TABLET PO SCH (08:55)
[2021-09-17] MEDS: POTASSIUM CHLORIDE 10 MEQ TABLET PO SCH (08:55)
[2021-09-17] MEDS: DILTIAZEM CD 120 MG CAPSULE PO SCH (08:55)
[2021-09-17] MEDS: ASPIRIN EC 81 MG TABLET PO SCH (08:55)
[2021-09-17] MEDS: ASCORBIC ACID 500 MG TABLET PO SCH ×2 (08:56→21:42)
[2021-09-17] MEDS: SPIRONOLACTONE 25 MG TABLET PO SCH (08:56)
[2021-09-17] MEDS: PANTOPRAZOLE 40 MG TABLET PO SCH (08:56)
[2021-09-17] MEDS: DOCUSATE SODIUM 100 MG CAPSULE PO SCH ×2 (08:56→21:41)
[2021-09-17] MEDS: carvediloL 12.5 MG TABLET PO SCH ×2 (08:56→21:41)
[2021-09-17] MEDS: INSULIN LISPRO 100 UNIT/ML SUBCUT SCH ×4 (09:00→20:55)
[2021-09-17] MEDS ORDERED: RIVAROXABAN 10 MG TABLET PO SCH (09:00)
[2021-09-17] MEDS ORDERED: ACETAMINOPHEN 325 MG TABLET PO PRN (18:28)
[2021-09-17] MEDS ORDERED: NON-FORMULARY MEDICATION (Sacubitril-Valsartan [Entresto] 24-26 mg Tablet) PO SCH (21:00)
[2021-09-17] MEDS: FAMOTIDINE 20 MG TABLET PO SCH (21:41)
[2021-09-18 06:44] LABS: Basophils % 0.3 % (0.0-0.8); Eosinophils # 0.3 10*3/uL (0.0-0.87); Eosinophils % 4.3 % (0.00-10.9); Hematocrit 27.3 VOL% (35.7-47.0); Hemoglobin 8.8 GM/DL (12.0-16.0); Immature Granulocytes % 0.3 %; Immature Granulocytes Absolute 0.02 #; Lymphocytes # 0.9 10*3/uL (1.4-4.0); Lymphocytes % 11.2 % (21.3-54.2); Mean Corpuscular HGB Conc 32.2 GM/DL (32-36); Mean Corpuscular Volume 93.2 FL (87-102); Mean Platelet Volume 12.3 FL (9.6-12.0); Neutrophils % 70.9 % (38.7-73.9); Platelet Count 185 T/CUMM (130-400); Red Blood Count 2.93 MC/CUMM (3.8-5.5); Red Cell Distribution Width 14.2 % (9.3-17.3); White Blood Count 7.8 T/CUMM (4-12)
[2021-09-18 07:04] LABS: Calcium 8.7 MG/DL (8.5-10.1); Osmolality,Calculated 275.8 MOS/KG (273-304); Potassium 4.2 MMOL/L (3.5-5.1)
[2021-09-18] MEDS ORDERED: RIVAROXABAN 20 MG TABLET PO SCH (08:00)
[2021-09-18] MEDS: DILTIAZEM CD 120 MG CAPSULE PO SCH (09:01)
[2021-09-18] MEDS: ASPIRIN EC 81 MG TABLET PO SCH (09:02)
[2021-09-18] MEDS: PANTOPRAZOLE 40 MG TABLET PO SCH (09:02)
[2021-09-18] MEDS: POTASSIUM CHLORIDE 10 MEQ TABLET PO SCH (09:02)
[2021-09-18] MEDS: SPIRONOLACTONE 25 MG TABLET PO SCH (09:02)
[2021-09-18] MEDS: DOCUSATE SODIUM 100 MG CAPSULE PO SCH (09:02)
[2021-09-18] MEDS: ASCORBIC ACID 500 MG TABLET PO SCH (09:02)
[2021-09-18] MEDS: carvediloL 12.5 MG TABLET PO SCH (09:02)
[2021-09-18] MEDS: INSULIN LISPRO 100 UNIT/ML SUBCUT SCH ×2 (09:06→12:40)
[2021-09-18] MEDS: FUROSEMIDE 40 MG TABLET PO SCH (09:06)
[2021-09-18 12:45] VITALS: BP 92/63
== END 2021-09-18 13:02 | disposition home health service (06) ==
LOC: N.OR 07:47 → N.SDSINP 07:48 → INTOOBSV 12:23 → N.TELEN 15:46
PROVIDERS: ADMIT Orthopaedic Surgery; ATTEND Orthopaedic Surgery

== ENCOUNTER 2022-03-13 07:17 | Inpatient (IN) ==
[2022-03-13 08:33] LABS: Basophils % 0.7 % (0.0-0.8); Eosinophils # 0.1 10*3/uL (0.0-0.87); Eosinophils % 2.2 % (0.00-10.9); Hematocrit 22.1 VOL% (35.7-47.0); Hemoglobin 6.6 GM/DL (12.0-16.0); Immature Granulocytes % 0.5 %; Immature Granulocytes Absolute 0.03 #; Lymphocytes # 1.4 10*3/uL (1.4-4.0); Lymphocytes % 23.9 % (21.3-54.2); Mean Corpuscular HGB Conc 29.9 GM/DL (32-36); Mean Corpuscular Volume 92.1 FL (87-102); Mean Platelet Volume 11.2 FL (9.6-12.0); Monocytes # 0.6 10*3/uL (0.11-0.8); Monocytes % 10.4 % (1.7-12.7); Neutrophils % 62.3 % (38.7-73.9); Platelet Count 329 T/CUMM (130-400); Red Cell Distribution Width 15.9 % (9.3-17.3)
[2022-03-13 08:42] LABS: PT Patient Result 11.5 SECS (10.5-12.0)
[2022-03-13 08:59] LABS: Alanine Aminotransferase 14 U/L (13-56); Albumin 3.4 G/DL (3.4-5.0); Alkaline Phosphatase 119 U/L (45-117); Aspartate Amino Transferase 10 U/L (0-37); Bilirubin,Total < 0.39 MG/DL (0.20-1.00); Blood Urea Nitrogen 14 MG/DL (7-18); Carbon Dioxide 22 MMOL/L (21-32); Chloride 112 MMOL/L (98-107); Glucose 105 MG/DL (74-106); Osmolality,Calculated 279.4 MOS/KG (273-304); Potassium 4.2 MMOL/L (3.5-5.1); Sodium 140 MMOL/L (136-145); Total Protein 7.1 G/DL (6.4-8.2)
[2022-03-13] MEDS ORDERED: SODIUM CHLORIDE 0.9% 1,000 ML IV PRN (09:15)
[2022-03-13 09:35] LABS: RBC,Urine 1 /HPF (0-4); Squamous Epithelial Cell,Urine Occasional /HPF (0-10)
[2022-03-13 09:36] LABS: Bilirubin,Urine Negative (Negative); Blood, Urine Negative (Negative); Glucose,Urine (UA) Negative (Negative); Ketones,Urine Negative (Negative); Nitrite,Urine Negative (Negative); Protein,Urine 30 mg/dL (Negative); Urine Appearance Clear (Clear); Urine Color Yellow (Yellow); Urine Specific Gravity 1.025 (1.001-1.035); Urine Urobilinogen 0.2 eU/dL (<2.0)
[2022-03-13] MEDS ORDERED: GLUCAGON 1 MG VIAL IM PRN (09:43)
[2022-03-13] MEDS ORDERED: ONDANSETRON 4 MG/2 ML VIAL IV PRN (09:43)
[2022-03-13] MEDS ORDERED: ACETAMINOPHEN 325 MG TABLET PO PRN (09:43)
[2022-03-13] MEDS ORDERED: DEXTROSE 50% 25 GM/50 ML VIAL IV PRN (09:43)
[2022-03-13 10:04] LABS: % Iron Saturation 4.3 % (18-50); Ferritin 9.3 ng/mL (8-252)
[2022-03-13] MEDS ORDERED: DEXTROSE 10% 250 ML BAG IV PRN (10:11)
[2022-03-13 10:49] LABS: Folate 12.41 NG/ML (5.38-24.0); Vitamin B12 253 PG/ML (211-911)
[2022-03-13] MEDS: FERROUS SULFATE 325 MG TABLET PO SCH (18:10)
[2022-03-13] MEDS: DOCUSATE SODIUM 100 MG CAPSULE PO SCH (18:12)
[2022-03-13] MEDS: AMIODARONE 200 MG TABLET PO SCH (18:12)
[2022-03-13] MEDS: DIGOXIN 0.125 MG TABLET PO SCH (18:13)
[2022-03-13] MEDS: FUROSEMIDE 40 MG TABLET PO SCH (18:13)
[2022-03-13] MEDS: INSULIN LISPRO 100 UNIT/ML SUBCUT SCH ×3 (18:14→21:24)
[2022-03-13 19:45] LABS: Basophils % 0.4 % (0.0-0.8); Eosinophils # 0.1 10*3/uL (0.0-0.87); Eosinophils % 1.4 % (0.00-10.9); Hematocrit 29.1 VOL% (35.7-47.0); Hemoglobin 8.9 GM/DL (12.0-16.0); Immature Granulocytes % 0.5 %; Immature Granulocytes Absolute 0.04 #; Lymphocytes # 1.5 10*3/uL (1.4-4.0); Lymphocytes % 18.7 % (21.3-54.2); Mean Corpuscular HGB Conc 30.6 GM/DL (32-36); Mean Platelet Volume 10.7 FL (9.6-12.0); Monocytes # 0.6 10*3/uL (0.11-0.8); Monocytes % 7.8 % (1.7-12.7); NRBC # 0.02 10*3/uL; Neutrophils % 71.2 % (38.7-73.9); Platelet Count 312 T/CUMM (130-400); Red Blood Count 3.27 MC/CUMM (3.8-5.5); Red Cell Distribution Width 15.9 % (9.3-17.3); White Blood Count 7.9 T/CUMM (4-12)
[2022-03-13 20:45] LABS: Sedimentation Rate-Westergren 35 MM/HR (0-30)
[2022-03-14 05:54] LABS: Basophils % 0.4 % (0.0-0.8); Eosinophils # 0.2 10*3/uL (0.0-0.87); Eosinophils % 2.3 % (0.00-10.9); Hematocrit 27.6 VOL% (35.7-47.0); Hemoglobin 8.5 GM/DL (12.0-16.0); Immature Granulocytes % 0.4 %; Immature Granulocytes Absolute 0.03 #; Lymphocytes # 1.5 10*3/uL (1.4-4.0); Lymphocytes % 21.2 % (21.3-54.2); Mean Corpuscular HGB Conc 30.8 GM/DL (32-36); Mean Corpuscular Volume 88.7 FL (87-102); Mean Platelet Volume 11.3 FL (9.6-12.0); Monocytes # 0.7 10*3/uL (0.11-0.8); Monocytes % 9.5 % (1.7-12.7); NRBC # 0.02 10*3/uL; Neutrophils % 66.2 % (38.7-73.9); Platelet Count 274 T/CUMM (130-400); Red Blood Count 3.11 MC/CUMM (3.8-5.5); Red Cell Distribution Width 15.7 % (9.3-17.3); White Blood Count 6.9 T/CUMM (4-12)
[2022-03-14 05:59] LABS: Calcium 8.8 MG/DL (8.5-10.1); Osmolality,Calculated 277.5 MOS/KG (273-304); Potassium 4.1 MMOL/L (3.5-5.1)
[2022-03-14 06:05] LABS: Risk Ratio 2.37; VLDL Cholesterol 11.6 MG/DL
[2022-03-14 07:36] VITALS: BP 131/75
[2022-03-14] MEDS: DOCUSATE SODIUM 100 MG CAPSULE PO SCH (09:32)
[2022-03-14] MEDS: FERROUS SULFATE 325 MG TABLET PO SCH (09:32)
[2022-03-14] MEDS: AMIODARONE 200 MG TABLET PO SCH (09:33)
[2022-03-14] MEDS: DIGOXIN 0.125 MG TABLET PO SCH (09:33)
[2022-03-14] MEDS: FUROSEMIDE 40 MG TABLET PO SCH (09:40)
[2022-03-14] MEDS: INSULIN LISPRO 100 UNIT/ML SUBCUT SCH (09:40)
[2022-03-14] MEDS ORDERED: NEBIVOLOL 10 MG TABLET PO SCH (11:00)
[2022-03-16 09:18] LABS: Hemoglobin A1 (Alkaline) 97.8 % (96.5-98.5); Hemoglobin A2 (Alkaline) 2.2 % (1.5-3.5)
== END 2022-03-14 11:35 | disposition home or self-care (01) | DRG 812 ==
LOC: N.ED 07:17 → N.EDINP 09:43 → SUATTDRO 09:43 → N.3E 11:50
PROVIDERS: ADMIT Internal Medicine; ATTEND Internal Medicine